=== PATIENT | female | born 1975 | race Caucasian/White ===

== ENCOUNTER 2020-08-03 17:46 | Emergency (ER) | payer MEDICAID ==
[~2020-08-03] VITALS: Ht 162.6 cm; Wt 73.0 kg
[2020-08-03] MEDS ORDERED: CYCLOBENZAPRINE HCL 10 MG TABLET PO ONE (18:30)
[2020-08-03] MEDS ORDERED: KETOROLAC TROMETHAMINE 60 MG/2 ML VIAL IM ONE (18:30)
[2020-08-03 20:00] VITALS: BP 135/82
== END 2020-08-03 20:27 | disposition home or self-care (01) ==
LOC: EDBD 17:48 → EMS 17:48
DX: S40.012A Contusion of left shoulder, initial encounter (principal); S09.90XA Unspecified injury of head, initial encounter; R07.9 Chest pain, unspecified; M54.2 Cervicalgia; I10 Essential (primary) hypertension; V43.52XA Car driver injured in collision with other type car in traffic accident, initial encounter; Y93.89 Activity, other specified; Y92.89 Other specified places as the place of occurrence of the external cause; Y99.8 Other external cause status
CPT/HCPCS: 70450; 71045; 72125; 73030; 96372; 99285; J1885